=== PATIENT | male | born 1990 | race Two or more races ===

== ENCOUNTER 2022-05-23 10:08 | Emergency (ER) | payer SELFPAY ==
[~2022-05-23] VITALS: Ht 180.3 cm; Wt 81.8 kg
[2022-05-23 10:09] VITALS: BP 126/89
[2022-05-23 11:00] LABS: Basophils # (auto) 0.1 10 ^3/uL (0-0.2); Basophils % (auto) 0.8 % (0.0-2.0); Eosinophils # (auto) 0.1 10 ^3/uL (0-0.8); Eosinophils % (auto) 0.7 % (0.0-7.0); Hematocrit 52.7 % (41.0-53.0); Hemoglobin 17.2 g/dL (13.5-17.5); Lymphocytes # (auto) 2.3 10 ^3/uL (0.4-5.4); Lymphocytes % (auto) 14.5 % (10.0-50.0); Mean Corpuscular Hemoglobin 29.5 pg (28.0-32.0); Mean Corpuscular Hgb Conc. 32.7 g/dL (32.0-36.0); Monocytes # (auto) 1.4 10 ^3/uL (0-1.3); Monocytes % (auto) 8.6 % (0.0-12.0); Neutrophils # (auto) 11.9 10 ^3/uL (1.6-8.6); Neutrophils % (auto) 75.4 % (37.0-80.0); Nucleated Red Blood Cells % 0.1 %; Red Blood Cells 5.85 10^6/uL (4.5-5.90); Red Cell Distribution Width 15.3 % (11.8-14.3); White Blood Cell 15.8 10^3/uL (4.4-10.8)
[2022-05-23 11:07] LABS: Albumin 4.3 g/dL (3.4-5.0); Anion Gap 3 (5-15); Blood Alcohol < 3.0 mg/dL (0-5); Blood Urea Nitrogen 15 mg/dL (7-18); Calcium 9.5 mg/dL (8.5-10.1); Carbon Dioxide 29 mmol/L (21-32); Chloride 104 mmol/L (98-107); Glucose 95 mg/dL (74-106); Potassium 4.7 mmol/L (3.5-5.1); Sodium 136 mmol/L (136-145)
[2022-05-23 11:11] LABS: Alanine Aminotransferase 37 U/L (16-61); Alkaline Phosphatase 74 U/L (45-117); Aspartate Aminotransferase 18 U/L (15-37); BUN/Creatinine Ratio 13.5 (10.0-20.0); Bilirubin, Total 0.6 mg/dL (0.2-1.0); GFR African American 100 mL/min; GFR Non-African American 83 mL/min; Total Protein 8.2 g/dL (6.4-8.2)
== END 2022-05-23 12:30 | disposition left against medical advice (07) ==
LOC: EDBD 10:08 → ER 10:08
DX: Z00.00 Encounter for general adult medical examination without abnormal findings (principal); Z53.21 Procedure and treatment not carried out due to patient leaving prior to being seen by health care provider
CPT/HCPCS: 36415; 80053; 80320; 85025

== ENCOUNTER 2022-08-04 23:13 | Emergency (ER) | payer MEDICAID, OTHER ==
[~2022-08-04] VITALS: Ht 190.5 cm; Wt 88.1 kg
[2022-08-05 01:14] VITALS: BP 137/89
[2022-08-05] MEDS ORDERED: ACET500T58 PO (01:14)
[2022-08-05] MEDS ORDERED: AMOX875T4 PO (01:14)
== END 2022-08-05 01:22 | disposition home or self-care (01) ==
LOC: ER 23:13
DX: H66.92 Otitis media, unspecified, left ear (principal); Z88.1 Allergy status to other antibiotic agents